=== PATIENT | male | born 1975 | race Caucasian/White ===

== ENCOUNTER 2018-12-10 19:10 | Emergency (ER) | payer OTHER ==
[~2018-12-10] VITALS: Ht 172.7 cm; Wt 121.6 kg
[2018-12-10 19:22] VITALS: Ht 172.7 cm; Wt 121.6 kg
[2018-12-10 22:02] VITALS: BP 130/70
== END 2018-12-10 22:02 | disposition home or self-care (01) ==
LOC: ED 19:10
DX: L02.415 Cutaneous abscess of right lower limb (principal); Z98.890 Other specified postprocedural states
CPT/HCPCS: J2001

== ENCOUNTER 2018-12-12 20:20 | Emergency (ER) | payer OTHER ==
[~2018-12-12] VITALS: Ht 180.3 cm; Wt 120.7 kg
[2018-12-12 20:56] VITALS: Ht 180.3 cm; Wt 120.7 kg
[2018-12-12 21:56] VITALS: BP 137/88
== END 2018-12-12 21:56 | disposition home or self-care (01) ==
LOC: ED 20:20
DX: L02.415 Cutaneous abscess of right lower limb (principal); Z48.01 Encounter for change or removal of surgical wound dressing

== ENCOUNTER 2020-04-18 00:33 | Emergency (ER) | payer OTHER ==
[~2020-04-18] VITALS: Ht 188 cm; Wt 116.6 kg
[2020-04-18 00:43] VITALS: BP 103/76
== END 2020-04-18 01:44 | disposition home or self-care (01) ==
LOC: ED 00:33
DX: S01.01XA Laceration without foreign body of scalp, initial encounter (principal); Z98.890 Other specified postprocedural states; W26.8XXA Contact with other sharp object(s), not elsewhere classified, initial encounter; Y93.89 Activity, other specified; Y92.89 Other specified places as the place of occurrence of the external cause; Y99.8 Other external cause status
CPT/HCPCS: 90715; J2001

== ENCOUNTER 2020-04-26 20:16 | Emergency (ER) | payer OTHER ==
[~2020-04-26] VITALS: Ht 180.3 cm; Wt 117.0 kg
[2020-04-26 20:46] VITALS: BP 120/71; Ht 180.3 cm; Wt 117.0 kg
== END 2020-04-26 21:08 | disposition home or self-care (01) ==
LOC: ED 20:16
DX: S01.01XD Laceration without foreign body of scalp, subsequent encounter (principal); X58.XXXD Exposure to other specified factors, subsequent encounter

== ENCOUNTER 2020-05-20 13:12 | Emergency (ER) | payer OTHER ==
[~2020-05-20] VITALS: Ht 180.3 cm; Wt 116.6 kg
[2020-05-20 13:46] VITALS: Ht 180.3 cm; Wt 116.6 kg
[2020-05-20 14:51] VITALS: BP 133/83
== END 2020-05-20 14:57 | disposition home or self-care (01) ==
LOC: ED 13:12
DX: S09.8XXA Other specified injuries of head, initial encounter (principal); X58.XXXA Exposure to other specified factors, initial encounter; Y93.89 Activity, other specified; Y92.89 Other specified places as the place of occurrence of the external cause; Y99.8 Other external cause status